=== PATIENT | male | born 1985 | race Caucasian/White ===

== ENCOUNTER 2020-08-04 17:34 | Emergency (ER) | payer OTHER ==
[~2020-08-04] VITALS: Ht 182.9 cm; Wt 132.5 kg
--- NOTE | 2020-08-04 18:29 | NUR ---
MELT SUPERINTENDANT: PT AMBULATORY TO ROOM WITH STEADY GAIT FROM LOBBY WITH CAREER RESOURCE TECHNICIAN AT THIS TIME.
--- NOTE | 2020-08-04 18:55 | NUR ---
US TECH IN ROOM. THIS IS A 35 YO MALE COMING IN FOR "I THINK I DID TOO MUCH YESTERDAY, MY HERNIA HURTS MORE NOW AND IT GOES UP MY ABDOMEN". PATIENT STATES HE FIRST NOTICED HERNIA ABOUT 6 MONTHS AGO, HAS NOT HAD ANY INTERVENTIONS IN THE MEANTIME. CURRENTLY STATES PAIN IS 3/10 AT REST, WORSENS WITH COUGHING/SNEEZING/ANY PRESSURE. MONITORING IN PLACE, VSS, NADN AT THIS TIME. CALL LIGHT IN REACH
[2020-08-04 19:48] VITALS: BP 130/86
== END 2020-08-04 19:50 | disposition home or self-care (01) ==
LOC: ED 18:37
DX: K42.9 Umbilical hernia without obstruction or gangrene (principal); R10.33 Periumbilical pain
CPT/HCPCS: 76705; 99283; 99284